=== PATIENT | male | born 1960 | race Caucasian/White ===

== ENCOUNTER 2019-12-16 12:51 | Outpatient (CLI) | payer OTHER, SELFPAY ==
[2019-12-16 16:50] LABS: Anion Gap 9.1 mmol/L (3-11); BUN 23 mg/dL (7-18); CO2 26.9 mmol/L (21.0-32.0); Chloride 105 mmol/L (98-107); Estimated GFR 44.46 (mL/min/1.73m2); Glucose 97 mg/dL (74-106); Potassium 5.4 mmol/L (3.5-5.1); Sodium 141 mmol/L (136-145)
== END 2019-12-16 13:11 ==
PROVIDERS: PCP Family Medicine; Visit Provider Family Medicine
DX: I10 Essential (primary) hypertension (principal)
CPT/HCPCS: 36415; 80048

== ENCOUNTER 2019-12-19 07:29 | Outpatient (CLI) | payer OTHER, SELFPAY ==
--- NOTE | 2019-12-19 10:17 | DI.US_ITS ---
EXAM: US RENAL CLINICAL HISTORY: RENAL INSUFFICIENCY, MILD, N28.9 TECHNIQUE: Ultrasound performed using standard protocol. COMPARISON: No exams were available for comparison FINDINGS: Scanning of the urinary tract was performed according to the usual protocol. Incidental note is made of cholelithiasis with multiple gallstones. There is no evidence of a renal mass, hydronephrosis, or nephrolithiasis. Two small right renal simp le cysts are noted, the largest measuring about 16 millimeters in diameter. Urinary bladder is unrem arkable in appearance. Pre and postvoid urinary bladder volume measurements are 158 cc's and 29 cc's respectively. Ureteral jets were not visualized. IMPRESSION: No significant renal abnormality seen. No evidence of urinary tract obstruction.
== END 2019-12-19 07:49 ==
PROVIDERS: PCP Nurse Practitioner Family; Visit Provider Family Medicine
DX: N28.9 Disorder of kidney and ureter, unspecified (principal); K80.20 Calculus of gallbladder without cholecystitis without obstruction; N28.1 Cyst of kidney, acquired
CPT/HCPCS: 76770

== ENCOUNTER 2021-05-09 17:45 | Outpatient (REF) | payer BC, SELFPAY ==
[2021-05-09 18:08] LABS: Anion Gap 10.6 mmol/L (3-11); BUN 31 mg/dL (7-18); CO2 23.4 mmol/L (21.0-32.0); CREATININE 1.7 mg/dL (0.70-1.30); Calcium 8.9 mg/dL (8.5-10.1); Calculated LDL 110 mg/dL (<100); Chloride 106 mmol/L (98-107); Cholesterol 156 mg/dL (<200); Estimated GFR 41.18 (mL/min/1.73m2); Glucose 162 mg/dL (74-106); HDL Cholesterol 29 mg/dL (40-60); Potassium 4.7 mmol/L (3.5-5.1); Sodium 140 mmol/L (136-145); Triglyceride 88 mg/dL (<150)
== END 2021-05-09 17:46 | disposition home or self-care (01) ==
LOC: LBN 17:45
PROVIDERS: PCP Nurse Practitioner Family; Visit Provider Nurse Practitioner Family
DX: E78.5 Hyperlipidemia, unspecified (principal); I10 Essential (primary) hypertension
CPT/HCPCS: 80048; 80061; 83036

== ENCOUNTER 2021-06-13 11:02 | Day surgery (SDC) | payer BC, SELFPAY ==
--- NOTE | 2021-06-13 06:53 | W.COLOREPORT ---
Date of service: 06/13/21 Time of Service: 12:00 Colonoscopy Report Date of procedure: 06/13/21 Pre-op diagnosis general: Colon Cancer Screening Post-op diagnosis procedure note: same Procedure: Colonoscopy Surgeon: Marilee Barr Anesthesia Type: General:No Airway (ASA 2/Ion Combs, ZELALEM) Estimated blood loss (mL): 0 Pathology: none sent Complications: None Disposition: same day Indications: The patient is here for Colonoscopy pre-op. His last screening was in 2009 and was unremarkable. He has no family history of colon cancer. He has not had any bowel habit changes. -Discussed colonoscopy bowel prep as well as the procedure. Discussed possible complications of the procedure to include bleeding, pain, perforation, missed small lesion/polyp, sore throat, aspiration and adverse reaction to the medications. Questions were answered to patient?s satisfaction. No guarantees were implied or given. Prep: Miralax/Dulcolax Procedure Start Time: 12:00 Procedure End Time: 12:46 Retraction Time: 14 minutes Findings: Normal colon Procedure Description: After informed consent was obtained the patient was taken to the procedure room and placed in a left decubitous position. Monitors were applied and a time out was done. The patients name, date of , procedure, allergies to medications and metal in their body was reviewed. The patient was then sedated. Once sedated and comfortable a rectal exam was done. External exam was normal. Internal exam revealed a normal sphincter tone and no palpable masses. I was unable to feel his prostate. The scope was then introduced and retro-flexed. NO internal hemorrhoids, polyps or masses were identified on retro-flexion. The scope was then advanced to the cecum without difficulty. The ileocecal vlave and appendiceal orifice were identified. The prep was good. The scope was then slowly retracted over 14 minutes back into the rectum. There were no polyps. There was no diverticulosis noted. The scope was removed and the patient was woken up and taken back to Same day surgery in stable condition. The patient tolerated the procedure well and there were no immediate complications. Follow up: The patient should follow up in 14 years unless they develop changes in bowel habits or other new gastrointestinal complaints.
--- NOTE | 2021-06-13 06:55 | W.PM.DSUDISC ---
Discharge Plan Disposition Patient Disposition: HOME Condition: Good Discharge Details Reason For Visit: SCREENING Attending Provider: Marilee Barr Primary Care Provider: Mckenzie De Jesus Home Meds and New Rx's Prescriptions: Continued buspirone 30 mg tablet 30 mg PO DAILY Qty: 90 RF: 4 aspirin [Aspir-81] 81 MG tablet,delayed release (DR/EC) 1 tab PO DAILY RF: 0 lisinopril 20 mg tablet 20 mg PO DAILY Qty: 90 RF: 4 venlafaxine 75 mg capsule,extended release 24hr 75 mg PO DAILY Qty: 90 RF: 4 venlafaxine 150 mg capsule,extended release 24hr 150 mg PO DAILY Qty: 90 RF: 4 lorazepam [Ativan] 1 mg tablet 1 mg PO DAILY PRN (Reason: anxiety) Qty: 30 RF: 0 atorvastatin 40 mg tablet 40 mg PO DAILY Qty: 90 RF: 4 Discontinued bisacodyl [Dulcolax (bisacodyl)] 5 mg tablet,delayed release (DR/EC) 5 mg PO ONCE Qty: 4 RF: 0 polyethylene glycol 3350 17 gram/dose powder 238 g PO ONCE Qty: 238 RF: 0 bisacodyl [Dulcolax (bisacodyl)] 5 mg tablet,delayed release (DR/EC) 5 mg PO ONCE Qty: 4 RF: 0 polyethylene glycol 3350 17 gram/dose powder 238 g PO ONCE Qty: 238 RF: 0 Discharge Instructions Additional Instructions: Findings: Normal colonoscopy Follow up: 10 years Please call if you develop: fevers >101.5 Nausea or Vomiting Abdominal pain that is not transient Rectal bleeding that is more then a tbsp A hard abdomen and inability to pass gas DAY SURGERY UNIT POST ENDOSCOPY INSTRUCTIONS Instructions for everyone who is given Anesthesia: For your safety, please do the following for the next 24 Hours: a. Do not drive or operate dangerous equipment b. Do not drink alcohol beverages or use any recreational drugs for the first 24 hours or while taking pain medications. The medications in your body may have a reaction that can be dangerous. c. Do not make any important decisions or sign any important papers 1. Generally there are no restrictions on your activity after a day or so has gone by, but you may feel a bit fatigued for a few days. 2. After you arrive home you may have a light meal and return to a normal diet as you can tolerate it without feeling sick to your stomach. 3. After surgery, you may feel pain or discomfort. This should be only transient, but if it persists please contact your doctor. 4. If there are any questions regarding the findings of your procedure, please feel free to contact your doctor. 6. If you are unable to contact your doctor with a problem, contact the hospital at [phone]. 7. Continue all your regular medications unless directed otherwise. I understand the above instructions and have no questions. Signature of Patient or Responsible Adult Escort Date/Time Name of Responsible Adult Escort Signature of Nurse Date/Time Activity:: Activity as Tolerated Diet:: As Tolerated Discharge Orders Discharge Orders: Discharge Order (Routine); Ordered 06/13/21 Ordered By: Marilee Barr
[2021-06-13 11:20] VITALS: BP 148/96; PULSE 90; RESP 18; TEMP 36.2; O2SAT 94
--- NOTE | 2021-06-13 11:21 | W.ANESPRE ---
General Info Date of Service Date Performed: 06/13/21 Height: 5 ft 10 in Weight: 113.398 kg Body Mass Index (BMI): 35.9 Surgical Procedure: Operation Date: 06/13/21 11:20 Proposed Procedures Side Surgeon p Colonoscopy Marilee Barr MD Meds Allergies and Home Medications Allergies Allergy/AdvReac Type Severity Reaction Status Date / Time fluoxetine HCl [From Prozac] Allergy Mild Hives Unverified 06/10/21 07:58 Home Medication Medication Instructions Recorded aspirin [Aspir 81] 1 tab PO DAILY 03/09/13 lisinopril 20 mg tablet 20 mg PO DAILY #90 tab-cap 08/30/20 venlafaxine 150 mg 150 mg PO DAILY #90 tab-cap 12/23/20 capsule,extended release 24 hr venlafaxine 75 mg capsule,extended 75 mg PO DAILY #90 cap 12/23/20 release 24 hr buspirone 30 mg tablet 30 mg PO DAILY #90 tab 04/04/21 atorvastatin 40 mg tablet 40 mg PO DAILY #90 tab-cap 06/09/21 lorazepam 1 mg tablet 1 mg PO DAILY PRN #30 tab-cap 06/09/21 bisacodyl 5 mg tablet,delayed 5 mg PO ONCE #4 tab 06/10/21 release bisacodyl 5 mg tablet,delayed 5 mg PO ONCE #4 tab 06/10/21 release polyethylene glycol 3350 17 238 g PO ONCE #238 g 06/10/21 gram/dose oral powder polyethylene glycol 3350 17 238 g PO ONCE #238 g 06/10/21 gram/dose oral powder Current Visit Medications: Current Medications Generic Name Dose Route Start Last Admin Trade Name Freq PRN Reason Stop Dose Admin Hyoscyamine Sulfate 0.125 mg 06/13/21 06:56 Hyoscyamine 0.125 Mg Sl/Oral/Chew SL DIRECTED PRN Ringer's Solution 1,000 mls @ 80 mls/hr 06/13/21 06:00 IV 07/10/21 23:59 INFUSION REPLACED BY [facility] IV Miscellaneous Supplies 1 each 06/13/21 06:00 Iv Access IV 07/10/21 23:59 DIRECTED PEPE Ondansetron HCl 4 mg 06/13/21 06:56 Ondansetron 4 Mg/2 Ml Vial IVP Q4H PRN PRN Nausea / Vomiting Sodium Chloride 0 ml 06/13/21 06:00 Normal Saline Flush 10 Ml Syr IV 07/10/21 23:59 PRN PRN Sodium Chloride 0 ml 06/13/21 06:00 Normal Saline 10 Ml Vial IJ 07/10/21 23:59 DIRECTED PRN Sterile Water 0 ml 06/13/21 06:00 Water,Injection,Sterile 10 Ml Vial IJ 07/10/21 23:59 DIRECTED PRN PFSH Active Problems Active Problems: Problem Status Onset Code Essential hypertension I10 Chronic kidney disease N18.9 Hyperlipidemia E78.5 Prediabetes R73.03 Major depressive disorder F32.9 Generalized anxiety disorder F41.1 Social anxiety disorder F40.10 Globus sensation R09.89 Medical History Medical History Chronic kidney disease Generalized anxiety disorder Globus sensation History of tobacco use Hyperlipidemia Major depressive disorder Prediabetes Social anxiety disorder Surgical History Surgical History S/P appendectomy S/P colonoscopy (06/01/10) S/P splenectomy Tobacco Smoking/Tobacco Use Status: Former Tobacco Use (about 25 years quit in 2003) Smokeless tobacco user: chewing tobacco Passive smoking exposure: Yes Second hand exposure: Yes Alcohol Alcohol Intake: former Substance Use Substance use: Current Sobriety Substance use type: former substance user, marijuana, crack/cocaine, heroin and hallucinogens Vital Signs and Lab Results Lab Results Blood Type / Crossmatch: No Data to Display Complete Blood Count: No Data to Display Complete Metabolic Panel: No Data to Display Liver Function Panel: No Data to Display Coagulation Panel: No Data to Display Cardiac Panel: No Data to Display Arterial Blood Gas: No Data to Display Venous Blood Gas: No Data to Display Pancreas Panel: No Data to Display Thyroid Panel: No Data to Display Infectious Disease: No Data to Display Blood Cultures: No Data to Display Toxicology Panel: No Data to Display Anesthesia Assessment and Plan Anesthesia History Personal History: No History of Anesthesia Complications Family History: No Family History of Anesthesia Complications Exercise Tolerance Exercise Tolerance: Metabolic Equivalents>4 Pertinent Negatives Pertinent Negatives: No Symptoms of GERD, No Major Cardiovascular Symptoms or Complaints, No Major Pulmonary Symptoms or Complaints and No History of CVA/TIA Cardiac & Pulmonary Exam Cardiac Exam: Normal S1/S2 Heart Sounds Pulmonary Exam: Clear Bilateral Breath Sounds Airway Exam Known Difficult Airway: No Mallampati Class: 2 Mouth Opening: Normal (> 3cm) Thyromental Distance: Greater than 3 cm Neck Range of Motion: Full ROM Neck Circumference: Normal Teeth Condition: Loose or Chipped, Dental Caries and Advised tooth loss possible given current condition (indicate tooth) Airway Comments: very poor dentition, multiple loose teeth, upper and lower. ASA Classification ASA Score: ASA 2 Emergency Case?: No NPO Status NPO Status: NPO Clears >2 hours, Solids >8 hours Anesthesia Plan Resuscitation Status: Full Code Anesthesia Technique: MAC Anesthesia Airway Planned: Natural Airway Monitors Used: Standard Monitors
[2021-06-13 11:25] VITALS: BMI 35.9
[2021-06-13] MEDS: Lactated Ringers 1,000 ML 80 ML IV (11:33)
[2021-06-13 12:37] VITALS: BP 132/74; PULSE 70; RESP 16; TEMP 36.1; O2SAT 93
--- NOTE | 2021-06-13 12:38 | W.ANESPOSTOP ---
Postoperative Evaluation Date, Time and Location Date Performed: 06/13/21 Time Performed: 12:38 Patient Location: Day Surgery Unit Vital Signs Most Recent Imported Vital Signs: Most Recent Vital Signs Temp Pulse Resp BP Pulse Ox 36.2 C L 90 18 148/96 H 94 06/13/21 11:20 06/13/21 11:20 06/13/21 11:20 06/13/21 11:20 06/13/21 11:20 Most Recent Manually Entered Vital Signs: Adult Blood Pressure: 132/74 Heart Rate: 70 Respirations: 12 Oxygen Saturation (%): 94 Temperature (C): 36.5 C Pain Score (0-10 Scale): 0 Pain Score Most Recent Pain Score: Most Recent Pain Score Pain Level 4 06/13/21 11:20 Assessment Mental Status: Awake (Alert & Oriented to Patient Baseline) Airway and Respiratory Function: Patent airway with normal (patient baseline) respiratory exam Cardiovascular Function: Hemodynamically Stable Hydration Status: Adequately Hydrated Nausea & Vomiting: No Nausea or Vomiting Pain: Pt. Denies Any Pain Peripheral Nerve Block: Patient did not receive a nerve block
[2021-06-13 12:39] VITALS: BP 132/74; PULSE 70; RESP 12; TEMPC 36.5; O2SAT 94
[2021-06-13 13:06] VITALS: BP 147/88; PULSE 63; RESP 17; TEMP 36.2; O2SAT 95
== END 2021-06-13 13:30 | disposition home or self-care (01) ==
LOC: SUR 11:03
PROVIDERS: PCP Nurse Practitioner Family; Visit Provider Surgery
PROC: 0DJD8ZZ Inspection of Lower Intestinal Tract, Via Natural or Artificial Opening Endoscopic (ICD-10-PCS; CPT 45378; principal; 2021-06-13 11:15)
DX: Z12.11 Encounter for screening for malignant neoplasm of colon (principal); R73.03 Prediabetes; N18.9 Chronic kidney disease, unspecified
CPT/HCPCS: 45378; J2001; J2704

== ENCOUNTER 2021-11-16 19:06 | Emergency (ER) | payer BC, SELFPAY ==
[2021-11-16 19:21] VITALS: BP 147/92; PULSE 102; RESP 18; TEMP 36.5; O2SAT 96
[2021-11-16 20:21] LABS: Abs Immature Grans 0.01 10^3/uL (0.0-0.06); Absolute Basophil Count 0.03 10^3/uL (0.0-0.2); Absolute Eosinophil Count 0.02 10^3/uL (0.0-0.7); Absolute Lymphocyte Count 2.02 10^3/uL (1.2-3.4); Absolute Monocyte Count 0.62 10^3/uL (0.1-0.8); Absolute Neutrophil Count 3.81 10^3/uL (1.2-6.7); Basophils % 0.5; Eosinophils % 0.3; HCT 44.5 % (40.0-50.0); HGB 14.6 g/dL (13.5-17.5); Immature Grans % 0.2; MCH 32.5 pg (27.0-33.0); MCHC 32.8 % (32.0-36.0); MCV 99.1 fL (80-95); MPV 9.6 fL (8.0-11.0); Monocytes % 9.5; Neutrophils % 58.5; Nucleated RBC 0 %; Platelet Count 435 10^3/uL (130-400); RBC 4.49 10^6/uL (4.36-5.78); RDW 14.1 % (11.8-14.1); RDW-SD 51.5 fL; WBC 6.51 10^3/uL (4.4-10.8)
[2021-11-16 20:34] LABS: ALT 34 U/L (16-63); AST 20 U/L (15-37); Albumin 3.4 g/dL (3.4-5.0); Alkaline Phosphatase 57 U/L (46-116); BUN 34 mg/dL (7-18); Bilirubin, Total 0.2 mg/dL (0.2-1.0); CREATININE 2.2 mg/dL (0.70-1.30); Calcium 8.8 mg/dL (8.5-10.1); Chloride 102 mmol/L (98-107); Estimated GFR 30.58 (mL/min/1.73m2); Glucose 106 mg/dL (74-106); Lipase 212 U/L (73-393); Potassium 4.4 mmol/L (3.5-5.1); Sodium 135 mmol/L (136-145); Total Protein 7.8 g/dL (6.4-8.2)
--- NOTE | 2021-11-16 21:36 | W.ED.GENAD ---
Discharge Plan Disposition Patient Disposition: HOME Condition: Stable Discharge Details Clinical Impression: Viral illness, Chronic kidney disease Primary Care Provider: Mckenzie De Jesus ED Provider: Radu Munoz Home Meds and New Rx's Prescriptions: Continued buspirone 30 mg tablet 30 mg PO DAILY Qty: 90 RF: 4 aspirin [Aspir-81] 81 MG tablet,delayed release (DR/EC) 1 tab PO DAILY RF: 0 venlafaxine 75 mg capsule,extended release 24hr 75 mg PO DAILY Qty: 90 RF: 4 venlafaxine 150 mg capsule,extended release 24hr 150 mg PO DAILY Qty: 90 RF: 4 atorvastatin 40 mg tablet 40 mg PO DAILY Qty: 90 RF: 4 lisinopril 20 mg tablet 20 mg PO DAILY Qty: 90 RF: 4 lorazepam [Ativan] 1 mg tablet 1 mg PO DAILY PRN (Reason: anxiety) Qty: 28 RF: 0 Discharge Instructions Instructions: Viral Syndrome (ED) Additional Instructions: Due to your chronic renal failure and your decreased kidney function it is very important that you stay well-hydrated as this may be contributing to your symptoms. At this time you are pending a send out Covid test which results are typically available in 24 to 48 hours and someone will contact you with your result. Until then you should stay at home quarantine given that you have a viral type symptoms. If you have any significant worsening of your symptoms or new complaint feel free to return to the emergency department for reassessment. Stand Alone Forms: Work Release Discharge Data Discharge Date/Time-TO BE ENTERED AT DEPARTURE: 11/16/21 22:04 Medical Decision Making Patient presenting to the emergency department with chief complaint of back pain and vague viral symptoms. Physical exam is unremarkable for any acute findings. Plan to check labs and perform send out Covid test. Review of labs show no worrisome finding for patient's complaint except for decreased renal function which is slightly worse than patient's baseline. Ordered IV hydration but patient refused at this time. Given that patient is otherwise stable in appearance and able to tolerate p.o. intake patient was encouraged to use acetaminophen for discomfort and to hydrate. Patient given work note excusing him from work pending Covid testing. Patient denies any known exposure. After discussion of diagnosis and plan of care patient has no further needs, questions, or concerns and states clear understanding to return to the emergency department for any worsening symptoms. Lab Data Labs: Laboratory Tests Range/Units 11/16/21 11/16/21 11/16/21 20:01 20:01 20:01 WBC (4.4-10.8) 10^3/uL 6.51 RBC (4.36-5.78) 10^6/uL 4.49 Hgb (13.5-17.5) g/dL 14.6 Hct (40.0-50.0) % 44.5 MCV (80-95) fL 99.1 H MCH (27.0-33.0) pg 32.5 MCHC (32.0-36.0) % 32.8 RDW (11.8-14.1) % 14.1 Plt Count (130-400) 10^3/uL 435 H MPV (8.0-11.0) fL 9.6 Immature Gran % 0.2 Neutrophils % 58.5 Lymphocytes % 31.0 Monocytes % 9.5 Eosinophils % 0.3 Basophils % 0.5 Nucleated RBC % % 0 Absolute Neutrophils (1.2-6.7) 10^3/uL 3.81 Absolute Lymphocytes (1.2-3.4) 10^3/uL 2.02 Absolute Monocytes (0.1-0.8) 10^3/uL 0.62 Absolute Eosinophils (0.0-0.7) 10^3/uL 0.02 Absolute Basophils (0.0-0.2) 10^3/uL 0.03 Sodium (136-145) mmol/L 135 L Potassium (3.5-5.1) mmol/L 4.4 Chloride (98-107) mmol/L 102 Carbon Dioxide (21.0-32.0) mmol/L 23.0 Anion Gap (3-11) mmol/L 10.0 BUN (7-18) mg/dL 34 H Creatinine (0.70-1.30) mg/dL 2.2 H Estimated GFR/1.73 m2 (mL/min/1.73m2) 30.58 Glucose (74-106) mg/dL 106 Calcium (8.5-10.1) mg/dL 8.8 Total Bilirubin (0.2-1.0) mg/dL 0.2 AST (15-37) U/L 20 ALT (16-63) U/L 34 Alkaline Phosphatase (46-116) U/L 57 Total Protein (6.4-8.2) g/dL 7.8 Albumin (3.4-5.0) g/dL 3.4 Lipase (73-393) U/L 212 SARS-CoV-2 (PCR) (Negative) Positive A* Eduardoaryn COVID-19 PCR Not Applicable Ref Test Perform Site [facility] [address] [facility] Lab HPI General Mode of arrival: ambulatory. Date/Time Provider Initiated Documentation: 11/16/21 19:25. Limitations to Documentation: no limitations. Information obtained by: patient. History of Present Illness 61 year old M presents to the emergency department with the chief complaint of Backache, nasal congestion, general feelings of illness, described as moderate, with intensity rated at 6. Quality is described as aching, and is localized to the back. Patient extremity. Patient started experiencing this day(s) (2) and it has been constant. No relieving factors improve symptom(s), Movement worsens symptoms . Patient notes headaches and malaise; denies chest pain and shortness of breath. Patient did receive the following treatments prior to arrival, none Related Data Home Medications Medication Instructions Recorded Confirmed aspirin [Aspir-81] 1 tab PO DAILY 03/09/13 11/16/21 venlafaxine 150 mg 150 mg PO DAILY #90 tab-cap 12/23/20 11/16/21 capsule,extended release 24 hr venlafaxine 75 mg capsule,extended 75 mg PO DAILY #90 cap 12/23/20 11/16/21 release 24 hr buspirone 30 mg tablet 30 mg PO DAILY #90 tab 04/04/21 11/16/21 atorvastatin 40 mg tablet 40 mg PO DAILY #90 tab-cap 06/09/21 11/16/21 lisinopril 20 mg tablet 20 mg PO DAILY #90 tab-cap 07/14/21 11/16/21 lorazepam 1 mg tablet 1 mg PO DAILY PRN #28 tab-cap 10/26/21 11/16/21 Previous Rx's Medication Instructions Recorded venlafaxine 150 mg 150 mg PO DAILY #90 tab-cap 12/23/20 capsule,extended release 24 hr venlafaxine 75 mg capsule,extended 75 mg PO DAILY #90 cap 12/23/20 release 24 hr buspirone 30 mg tablet 30 mg PO DAILY #90 tab 04/04/21 atorvastatin 40 mg tablet 40 mg PO DAILY #90 tab-cap 06/09/21 lisinopril 20 mg tablet 20 mg PO DAILY #90 tab-cap 07/14/21 lorazepam 1 mg tablet 1 mg PO DAILY PRN #28 tab-cap 10/26/21 Allergies Allergy/AdvReac Type Severity Reaction Status Date / Time fluoxetine HCl [From Prozac] Allergy Mild Hives Unverified 11/16/21 19:25 General Stated Complaint: Nk/Back Pain DIANNE: 3 Review of Systems Constitutional Constitutional: Reports body ache(s), Reports chills, Reports headache(s) and Reports malaise Eyes Eyes: Denies change in vision, Denies eye discharge, Denies eye pain and Reports other (due to headache) ENT Ears, Nose, Mouth, and Throat: Reports as per HPI, Denies ear discharge, Denies otalgia, Reports headache(s), Reports nasal congestion, Reports nasal discharge, Denies neck pain, Reports sore throat and Denies throat swelling Cardiovascular Cardiovascular: Denies chest pain and Denies dyspnea Respiratory Respiratory: Reports cough and Denies dyspnea Gastrointestinal Gastrointestinal: Denies abdominal pain, Reports loose stools, Reports nausea and Denies vomiting Musculoskeletal Musculoskeletal: Reports back pain, Denies joint swelling, Denies neck pain and Reports other (General myalgias) Integumentary/Breasts Skin/Breast: Denies rash Neurologic Neurologic: Reports headache(s) Allergic/Immunologic Allergic/Immunologic: Denies throat swelling PFSH All Active Problems (Updated 11/16/21 @ 21:37 by Radu Munoz NP) Viral illness (Acute) Essential hypertension (Chronic) Chronic kidney disease (Chronic) Hyperlipidemia (Chronic) Prediabetes (Chronic) Major depressive disorder (Chronic) Generalized anxiety disorder (Chronic) Social anxiety disorder (Chronic) Globus sensation (Chronic) Active Problem List Essential hypertension (Chronic) Chronic kidney disease (Chronic) Hyperlipidemia (Chronic) Prediabetes (Chronic) Major depressive disorder (Chronic) Generalized anxiety disorder (Chronic) Social anxiety disorder (Chronic) Globus sensation (Chronic) Medical History History of tobacco use Surgical History S/P appendectomy S/P colonoscopy (06/13/21) S/P splenectomy Family History Mother , age 80 Essential hypertension Depression Myeloma diagnosed 2012 Father Heart disease Pacemaker Asthma Brother Diabetes Depression Type 1 diabetes mellitus Brother Alcohol abuse Sister No problems noted. Sister No problems noted. Paternal Grandfather No problems noted. Paternal Grandmother Cancer Stroke Maternal Grandfather No problems noted. Maternal Grandmother Ovarian cancer Hyperlipidemia Social History Smoking/Tobacco Use Status: Former Tobacco Use Quit Date: 11/19/03 Smokeless tobacco user: chewing tobacco Second Hand Exposure: Yes Smoking risk assessment performed?: Yes Alcohol Intake: former Drug use: Current Sobriety Substance use type: former substance user, marijuana, crack/cocaine, heroin and hallucinogens Caregiver/Support person: Yes Housing: house Communication Needs: None Do you need help understanding health information?: Never Pets and animals: Yes Pets and animals: dog(s) Sexually active: No Do you think of yourself as: straight/heterosexual Current gender identity: male What is your relationship status?: How often do you talk on the phone with friends or family?: once per week How often do you get together with friends or relatives?: once per week How often do you attend sabianism or restorationist services?: 1-3 times per year Do you belong to any clubs or organized social groups?: yes Panel score (0-1 are the most socially isolated patients): 1 What type of physical activity do you participate in: none Frequency: does not exercise Pauline/Advent: None Special pauline needs: No Seatbelt use: always Helmet use: Yes Helmet use: always Drive intox or ride w/intox chassis driver: No Do you feel safe at home: Yes Do you feel safe in your relationship?: Yes Exam Const General: cooperative, comfortable and no acute distress Orientation: alert and awake [facility] Head: normal to inspection, normocephalic and atraumatic Ears: hearing grossly normal bilaterally and TM's normal bilaterally General nose exam: external nose normal Face and sinus: no erythema and sinus tenderness ethmoid and maxillary Mouth: oral mucosae normal, no drooling, no muffled voice and no trismus Throat: posterior oropharynx normal Eyes General: appearance normal, both eyes and all related structures Alignment and Position: alignment normal Periorbital: periorbital findings normal Eyelids: eyelids normal Conjunctivae: conjunctivae normal Sclera: sclerae normal Pupils: PERRL EOM: EOM intact bilaterally Neck Neck: normal visual inspection, full ROM, no lymphadenopathy, no meningeal signs, trachea midline and supple Resp Effort & Inspection: normal respiratory effort, able to speak in complete sentences and no cough Auscultation: clear to auscultation bilaterally Cardio Rate: regular rate Rhythm: regular rhythm Heart Sounds: S1 normal, S2 normal, normal S1 and S2, no click, no gallops, no murmurs and no rubs GI Inspection: obesity Palpation: soft and nontender Auscultation: normal bowel sounds Back/Spine/Pelvis Back: no CVA tenderness Cervical Spine: normal cervical lordosis Thoracic/Lumbar Spine: thoracic and lumbar spine normal to inspection, No paraspinal tenderness, No thoracic spinal tenderness and No lumbar spinal tenderness Skin General skin exam: no rashes or lesions noted and dry skin (warm) Neuro General: patient alert, patient awake, patient oriented x3, gait normal and moves all extremities Cognition: normal cognition Speech: speech normal Course Vital Signs Vital signs: Vital Signs Temperature 36.5 C 11/16/21 19:21 Pulse 102 H 11/16/21 19:21 Respiratory Rate 18 11/16/21 19:21 Blood Pressure 147/92 H 11/16/21 19:21 Pulse Oximetry 96 11/16/21 19:21 Temperature 36.5 C 11/16/21 19:21 Temperature Source Temporal Artery Scan 11/16/21 19:21 Pulse 102 H 11/16/21 19:21 Respiratory Rate 18 11/16/21 19:21 Respiratory Effort Non-Labored 11/16/21 19:27 Blood Pressure 147/92 H 11/16/21 19:21 Blood Pressure Position Sitting 11/16/21 19:21 Pulse Oximetry 96 11/16/21 19:21 Oxygen Delivery Method Room Air 11/16/21 19:21 Oxygen Flow Rate 0 11/16/21 19:21 Lab/Test Results Lab/Test Results: Laboratory Tests Range/Units 11/16/21 11/16/21 20:01 20:01 WBC (4.4-10.8) 10^3/uL 6.51 RBC (4.36-5.78) 10^6/uL 4.49 Hgb (13.5-17.5) g/dL 14.6 Hct (40.0-50.0) % 44.5 MCV (80-95) fL 99.1 H MCH (27.0-33.0) pg 32.5 MCHC (32.0-36.0) % 32.8 RDW (11.8-14.1) % 14.1 Plt Count (130-400) 10^3/uL 435 H MPV (8.0-11.0) fL 9.6 Immature Gran % 0.2 Neutrophils % 58.5 Lymphocytes % 31.0 Monocytes % 9.5 Eosinophils % 0.3 Basophils % 0.5 Nucleated RBC % % 0 Absolute Neutrophils (1.2-6.7) 10^3/uL 3.81 Absolute Lymphocytes (1.2-3.4) 10^3/uL 2.02 Absolute Monocytes (0.1-0.8) 10^3/uL 0.62 Absolute Eosinophils (0.0-0.7) 10^3/uL 0.02 Absolute Basophils (0.0-0.2) 10^3/uL 0.03 Sodium (136-145) mmol/L 135 L Potassium (3.5-5.1) mmol/L 4.4 Chloride (98-107) mmol/L 102 Carbon Dioxide (21.0-32.0) mmol/L 23.0 Anion Gap (3-11) mmol/L 10.0 BUN (7-18) mg/dL 34 H Creatinine (0.70-1.30) mg/dL 2.2 H Estimated GFR/1.73 m2 (mL/min/1.73m2) 30.58 Glucose (74-106) mg/dL 106 Calcium (8.5-10.1) mg/dL 8.8 Total Bilirubin (0.2-1.0) mg/dL 0.2 AST (15-37) U/L 20 ALT (16-63) U/L 34 Alkaline Phosphatase (46-116) U/L 57 Total Protein (6.4-8.2) g/dL 7.8 Albumin (3.4-5.0) g/dL 3.4 Lipase (73-393) U/L 212
[2021-11-16 22:12] VITALS: BP 120/73; PULSE 98; RESP 16; TEMP 36.6; O2SAT 95
[2021-11-18 11:59] LABS: COVID-19 RT-PCR UVMMC Result Positive (Negative)
--- NOTE | 2021-11-18 13:08 | W.ED.FU ---
Follow Up Plan: I was notified by the lab that Saleem Solorzano's Covid test resulted as positive. I contacted Mr. Solorzano to discuss his positive result with him over the phone. He reports that he is generally feeling well although he is having some continued symptoms ongoing from when he was seen here 11/16/2021. I had a discussion with Patient regarding return to emergency department precautions, home care, isolation to prevent transmission, and importance of outpatient follow-up. Pt verbalizes understanding of the plan and is amenable. All questions were answered.
== END 2021-11-16 22:04 | disposition home or self-care (01) ==
PROVIDERS: Emergency Provider Nurse Practitioner Family; PCP Nurse Practitioner Family
DX: U07.1 COVID-19 (principal); M54.50 Low back pain, unspecified; I12.9 Hypertensive chronic kidney disease with stage 1 through stage 4 chronic kidney disease, or unspecified chronic kidney disease; N18.9 Chronic kidney disease, unspecified; Z20.822 Contact with and (suspected) exposure to COVID-19
CPT/HCPCS: 36415; 80053; 83690; 99283; U0003; 85025

== ENCOUNTER 2022-05-19 02:50 | Outpatient (CLI) | payer BC, SELFPAY ==
--- OUTSIDE RECORDS SUMMARY | 2022-05-19 02:52 | XMS_ITS | Clinical Summary ---
:1960 Author Organization [facility] [address] Care Team Providers Name Role Phone Sb CRISTOBAL MD, Isaiah Hardin Primary Care Provider Allergies No known active allergies Medications Medication Sig Dispensed Refills Start Date End Date Status propranolol (INDERAL 80mg, PO, Once 0 06/15/2006 Active LA) 80 mg 24 hr capsule daily citalopram (CELEXA) 20 20MG = 1 0 06/15/2006 Active mg tablet Tablet(s), PO, Once daily Immunizations Name Administration Dates Next Due Td, adult 12/21/2003 Social History Tobacco Use Types Packs/Day Years Used Date Never Assessed Sex Assigned at Date Recorded Not on file Plan of Treatment Health Maintenance Due Date Last Done Comments Covid-19 Vaccine (#1) 1965 HIV screen 1978 Hepatitis C Screening 1978 Lipid Screening 1978 Tdap adult 1979 Colonoscopy 2005 Zoster vaccine (1 of 2) 2010 Tetanus vaccine 12/21/2013 12/21/2003 Advance Directive 2015 Influenza (Flu) vaccine (1 of 1 - Influenza standard 07/20/2021 series) Insurance Payer Benefit Plan / Subscriber ID Effective Dates Phone Addre ss Type Group CIGNA CIGNA POS OPEN [id number] 2014-Present [phone] [address] [place] [id number] Care Teams Bag Machine Tender Relationship Specialty Start Date End Date Isaiah Basurto III, MD PCP - General 10/11/10 [address] [place], [place] [address]
--- OUTSIDE RECORDS SUMMARY | 2022-05-19 02:52 | XMS_ITS | Encounter Summary ---
:1960 Author Organization [facility] [place] [address] Care Team Providers Name Role Phone Sb CRISTOBAL MD, Lloyd L Primary Care Provider [phone] Encounter Details Date Type Department Care Team Description 12/19/2019 Ancillary Procedure Radiology Library at [facility] [address] [address] [id number] [phone] Social History Tobacco Use Types Packs/Day Years Used Date Never Assessed Sex Assigned at Date Recorded Not on file documented as of this encounter Plan of Treatment Not on filedocumented as of this encounter Procedures Procedure Name Priority Date/Time Associated Comments Diagnosis FILM LIBRARY STORAGE Routine 12/19/2019 12:00 AM Results for this ONLY ULTRASOUND EST procedure ar e in STUDY the results section. documented in this encounter Results Film Library- Storage Only Ultrasound Study (12/19/2019 12:00 AM EST) Specimen (Source) Anatomical Location Collection Method / Collectio n Time Received Time / Laterality Volume Narrative RAD - 12/22/2019 9:52 AM EST This exam is auto-finalizing. It's purpo se is for storage only. [facility] WALL MIRROR DEPARTMENT SUPERVISOR IM FILM LIBRARY ORDERABLES Performing Organization Address City/State/ZIP Code Phon e Number [place], [place] documented in this encounter Visit Diagnoses Not on filedocumented in this encounter Care Teams Staffing Administrator Relationship Specialty Start Date End Date Isaiah Basurto III, MD PCP - General 10/11/10 [address] [place] [address] documented as of this encounter
--- OUTSIDE RECORDS SUMMARY | 2022-05-19 02:52 | XMS_ITS | Encounter Summary ---
:1960 Author Organization [facility] Address [address] [place] [address] Care Team Providers Name Role Phone Unavailable Primary Care Provider Unavailable Encounter Details Date Type Department Care Team Description 11/17/2021 Lab Requisition [facility] Outr Resulting Lab, Pathology & Laboratory Provider [facility] [address] [place] [address] Social History Tobacco Use Types Packs/Day Years Used Date Never Assessed Sex Assigned at Date Recorded Not on file documented as of this encounter Plan of Treatment Not on filedocumented as of this encounter Procedures Procedure Name Priority Date/Time Associated Diagnosis Comme nts COVID-19 TEST [facility] Today 11/16/2021 20:01 LAB PCR EST COVID-19 TESTING Routine 11/16/2021 20:01 Results for this EST procedure are i n the results section. documented in this encounter Results COVID-19 TEST [facility] LAB PCR (11/16/2021 20:01 EST) Specimen Swab Performing Organization Address City/State/ZIP Code Phon e Number [facility] [address] [place] [address] SERVICES (ABNORMAL) COVID-19 TESTING (11/16/2021 20:01 EST) COVID-19 rt-PCR Positive (AA) Negative [facility] Result Comment: LABORATORY This test has not been FDA c leared or approved. This test has been authorized by FDA under an EUA for use by authorized laboratories. This test has been authorized only for detection of nucleic acid fro SERVICES m 2019-nCoV, not for any oth er viruses or pathogens. This test is only authorized for the duration of the declaration that circumstances exist justifying the authorization of emergency use of in vitro d iagnostic tests for detectio n and/or diagnosis of 2019-nCoV under section 564(b)(1) of Act, 21 U.S.C ?? 360bbb-3(b) (1), unless the authorization is terminated or revoked sooner. Testing was performed using the madelyn SARS-CoV-2 assay ([employer] on the [facility] [address] System Performing Lab [facility] [address] [facility] Lab [facility] SERVICES Specimen Swab Performing Organization Address City/State/ZIP Code Phon e Number [facility] [address] [place] [address] SERVICES documented in this encounter Visit Diagnoses Not on filedocumented in this encounter Additional Health Concerns Infection Onset Date Last Indicated Resolved Time COVID-19 11/16/2021 11/16/2021 12/06/2021 22:15 EST documented as of this encounter
== END 2022-05-19 02:51 | disposition home or self-care (01) ==
LOC: LBO 02:50
PROVIDERS: PCP Nurse Practitioner Family; Visit Provider Nurse Practitioner Family

== ENCOUNTER 2022-05-30 03:01 | Outpatient (CLI) | payer BC, SELFPAY ==
[2022-05-30 14:27] LABS: Hemoglobin A1C 6.3 % (<5.7)
[2022-05-30 16:17] LABS: Anion Gap 7.4 mmol/L (3-11); BUN 26 mg/dL (7-18); CO2 23.6 mmol/L (21.0-32.0); CREATININE 1.5 mg/dL (0.70-1.30); Calcium 9.2 mg/dL (8.5-10.1); Chloride 108 mmol/L (98-107); Estimated GFR 47.42 (mL/min/1.73m2); Glucose 121 mg/dL (74-106); Potassium 4.6 mmol/L (3.5-5.1); Sodium 139 mmol/L (136-145)
[2022-05-30 16:26] LABS: COMMENT (LAB VIEW ONLY) 118.74 mg/dL
[2022-05-30 16:30] LABS: Microalb ug/mg Crea 220.1 ug/mg Cr
[2022-05-31 18:33] LABS: PSA, Screening 0.1 ng/mL (<=4.5)
== END 2022-05-30 03:02 | disposition home or self-care (01) ==
PROVIDERS: PCP Nurse Practitioner Family; Visit Provider Nurse Practitioner Family
DX: R73.03 Prediabetes (principal); N18.9 Chronic kidney disease, unspecified; Z12.5 Encounter for screening for malignant neoplasm of prostate
CPT/HCPCS: 36415; 80048; 84153; 82043; 82570; 83036

== ENCOUNTER 2023-06-01 02:12 | Outpatient (CLI) | payer BC, SELFPAY ==
[2023-06-01 17:42] LABS: Anion Gap 8.4 mmol/L (3-11); BUN 36 mg/dL (7-18); CO2 23.6 mmol/L (21.0-32.0); CREATININE 1.7 mg/dL (0.70-1.30); Calcium 8.6 mg/dL (8.5-10.1); Calculated LDL 121 mg/dL (<100); Chloride 109 mmol/L (98-107); Cholesterol 167 mg/dL (<200); Estimated GFR 44.74 (mL/min/1.73m2); Glucose 93 mg/dL (74-106); HDL Cholesterol 33 mg/dL (40-60); Potassium 4.7 mmol/L (3.5-5.1); Sodium 141 mmol/L (136-145); Triglyceride 69 mg/dL (<150)
== END 2023-06-01 02:13 | disposition home or self-care (01) ==
PROVIDERS: PCP Nurse Practitioner Family; Visit Provider Nurse Practitioner Family
DX: E78.5 Hyperlipidemia, unspecified (principal); I10 Essential (primary) hypertension; R73.03 Prediabetes
CPT/HCPCS: 36415; 80048; 80061; 83036

== ENCOUNTER 2024-08-22 03:12 | Outpatient (CLI) | payer BC, SELFPAY ==
[2024-08-22 15:04] LABS: HCT 44.6 % (40.0-50.0); HGB 15.2 g/dL (13.5-17.5); MCH 33.6 pg (27.0-33.0); MCHC 34.1 % (32.0-36.0); MCV 99 fL (80-95); MPV 10.3 fL (8.0-11.0); Platelet Count 438 10^3/uL (130-400); RBC 4.53 10^6/uL (4.36-5.78); RDW 13.5 % (11.8-14.1); RDW-SD 49.4 fL; WBC 6.53 10^3/uL (4.4-10.8)
[2024-08-22 15:18] LABS: Hemoglobin A1C 5.8 % (<5.7)
[2024-08-22 16:14] LABS: BUN 37 mg/dL (7-18); CREATININE 1.7 mg/dL (0.70-1.30); Calcium 9.5 mg/dL (8.5-10.1); Calculated LDL 73 mg/dL (<100); Chloride 106 mmol/L (98-107); Cholesterol 116 mg/dL (<200); Estimated GFR 44.46 (mL/min/1.73m2); Glucose 127 mg/dL (74-106); HDL Cholesterol 31 mg/dL (40-60); Potassium 4.6 mmol/L (3.5-5.1); Sodium 137 mmol/L (136-145); Triglyceride 64 mg/dL (<150)
[2024-08-25 09:56] LABS: HIV-1/2 Ag & Ab Screen Negative (Negative); PSA, Screening 0.2 ng/mL (<=4.5)
[2024-08-25 14:18] LABS: HBs Antibody, Quant 10.4 mIU/mL (See Note); Hep B Surface Ab Positive (See Note); Hepatitis B Core Antibody Negative (Negative); Hepatitis B Surface Antigen Negative (Negative)
== END 2024-08-22 03:13 | disposition home or self-care (01) ==
LOC: LBO 03:12
PROVIDERS: PCP Nurse Practitioner Family; Visit Provider Nurse Practitioner Family
DX: R73.03 Prediabetes (principal); Z12.5 Encounter for screening for malignant neoplasm of prostate; E78.5 Hyperlipidemia, unspecified; Z11.4 Encounter for screening for human immunodeficiency virus [HIV]; N18.30 Chronic kidney disease, stage 3 unspecified; I10 Essential (primary) hypertension; Z11.59 Encounter for screening for other viral diseases
CPT/HCPCS: 36415; 80048; 80061; 84153; 85027; 86704; 86706; 87340; 87389; 83036

== ENCOUNTER 2024-09-23 16:51 | Emergency (ER) | payer OTHER, SELFPAY ==
[2024-09-23 16:53] VITALS: BP 125/75; PULSE 82; RESP 12; TEMP 36.7; O2SAT 95
--- NOTE | 2024-09-23 17:00 | W.ED.GENAD ---
Discharge Plan Disposition Patient Disposition: Home Condition: Stable Discharge Details Clinical Impression: Laceration of right index finger Primary Care Provider: Mckenzie De Jesus ED Provider: Brenden Landaverde Home Meds and New Rx's Prescriptions: Continued atorvastatin 80 mg tablet 80 mg PO DAILY Qty: 90 3RF buspirone 30 mg tablet 30 mg PO DAILY Qty: 90 4RF Rx Instructions: Take 1 tab a day aspirin [Aspir-81] 81 MG tablet,delayed release (DR/EC) 1 tab PO DAILY lorazepam [Ativan] 1 mg tablet 1 mg PO DAILY PRN (Reason: anxiety) Qty: 28 2RF Rx Instructions: 1 tablet daily as needed for social anxiety lisinopril 40 mg tablet 40 mg PO DAILY Qty: 90 3RF amlodipine 5 mg tablet 5 mg PO DAILY Qty: 90 3RF venlafaxine 75 mg capsule,extended release 24hr 75 mg PO DAILY Qty: 90 3RF Rx Instructions: 1 pill daily in addition to the 150mg pill venlafaxine 150 mg capsule,extended release 24hr 150 mg PO DAILY Qty: 90 3RF Rx Instructions: 1 pill daily in addition to the 75mg pill Discharge Instructions Instructions: Laceration Repair With Stitches ED Additional Instructions: You were seen in the emergency department for the laceration of your right index finger requiring 5 sutures to repair, this was repaired without issue we updated your tetanus, these sutures will need to come out in 7 to 10 days. Please return earlier for any signs of infection including increasing redness, pain, fever, red streaking up the hand, drainage of pus from the area. Referrals: Mckenzie De Jesus NP [Primary Care Provider] - Discharge Data Discharge Date/Time-TO BE ENTERED AT DEPARTURE: 09/23/24 17:42 HPI General Date/Time Provider Initiated Documentation: 09/23/24 16:59. HPI Narrative: 64 year-old male presents to ED today by POV/ambulating with a chief complaint of R index finger laceration from metal banding at work with onset just prior to arrival. Quality described as not painful, bleeding well-controlled with a bandage, no radiation to spurting blood, numbness tingling distal, the laceration is described at his distal right index finger. Severity is described as mild. Palliating factors include simple bandage. Provoking factors include nothing specific. Events leading up to the incident/Associated Symptoms: Patients Tdap is out-of-date. Patient not anticoagulated. Related Data Home Medications ?Medication ?Instructions ?Recorded ?Confirmed aspirin 81 mg tablet,delayed 1 tab PO DAILY 03/09/13 09/23/24 release (Aspir-) amlodipine 5 mg tablet 5 mg PO DAILY #90 tabs 06/11/24 09/23/24 lisinopril 40 mg tablet 40 mg PO DAILY #90 tabs 06/11/24 09/23/24 lorazepam 1 mg tablet (Ativan) 1 mg PO DAILY PRN anxiety #28 tabs 06/11/24 09/23/24 venlafaxine 150 mg 150 mg PO DAILY #90 caps 06/11/24 09/23/24 capsule,extended release 24 hr venlafaxine 75 mg capsule,extended 75 mg PO DAILY #90 caps 06/11/24 09/23/24 release 24 hr atorvastatin 80 mg tablet 80 mg PO DAILY #90 tabs 07/03/24 09/23/24 buspirone 30 mg tablet 30 mg PO DAILY #90 tabs 08/28/24 09/23/24 Previous Rx's ?Medication ?Instructions ?Recorded amlodipine 5 mg tablet 5 mg PO DAILY #90 tabs 06/11/24 lisinopril 40 mg tablet 40 mg PO DAILY #90 tabs 06/11/24 lorazepam 1 mg tablet (Ativan) 1 mg PO DAILY PRN anxiety #28 tabs 06/11/24 venlafaxine 150 mg 150 mg PO DAILY #90 caps 06/11/24 capsule,extended release 24 hr venlafaxine 75 mg capsule,extended 75 mg PO DAILY #90 caps 06/11/24 release 24 hr atorvastatin 80 mg tablet 80 mg PO DAILY #90 tabs 07/03/24 buspirone 30 mg tablet 30 mg PO DAILY #90 tabs 08/28/24 Allergies Allergy/AdvReac Type Severity Reaction Status Date / Time fluoxetine HCl (From Prozac) Allergy Mild Hives Verified 09/23/24 16:55 General Stated Complaint: Laceration DIANNE: 4 Review of Systems All systems reviewed & are unremarkable except as noted in HPI and below Exam Narrative Exam Narrative: GENERAL APPEARANCE: Well-nourished, non-toxic, awake and alert, atraumatic, no acute distress. SKIN: Warm, pink, dry, 1.5 cm curvilinear laceration at the DIP of the right index finger, no active bleeding, sensation and capillary refill intact distal, full range of motion of the finger HEAD: Normocephalic, atraumatic, normal hair distribution for gender/age. EYES: Normal conjunctiva, no exudates on lids/lashes. ENT: Nares patent, no circumoral cyanosis, no facial swelling NECK: Supple, trachea midline, painless cervical ROM. LUNGS/CHEST: Non-labored respirations, normal A/P diameter, symmetrical expansion, no chest wall deformity HEART (CV/PV): Regular rate, R radial pulse 2+, no peripheral edema, no JVD. ABDOMEN: Soft, non-distended, no guarding. MSK: Normal ROM, no swelling/deformity to bilateral UEs or LEs, moving all extremities without weakness, no cyanosis, spine midline without tenderness, normal curvature. NEURO: Mental Status AAOx4 - alert to person, place, time, events No facial droop, no forehead involvement. Motor: No focal weakness - strength 5/5 in bilateral UEs and LEs, proximal and distal, symmetric. Sensory: sensation intact to light touch globally. Gait normal: patient ambulated without ataxia into ED room. PSYCH: euthymic, cooperative, pleasant, appropriate speech Course Vital Signs Vital signs: Vital Signs Temperature 36.7 C 09/23/24 16:53 Pulse 82 09/23/24 16:53 Respiratory Rate 12 09/23/24 16:53 Blood Pressure 125/75 09/23/24 16:53 Pulse Oximetry 95 09/23/24 16:53 Temperature 36.7 C 09/23/24 16:53 Temperature Source Oral 09/23/24 16:53 Pulse 82 09/23/24 16:53 Respiratory Rate 12 09/23/24 16:53 Blood Pressure 125/75 09/23/24 16:53 Blood Pressure Position Sitting 09/23/24 16:53 Pulse Oximetry 95 09/23/24 16:53 Oxygen Delivery Method Room Air 09/23/24 16:53 Oxygen Flow Rate 0 09/23/24 16:53 Pain Level 0 09/23/24 16:53 Procedures Laceration Laceration 1: Site: hand Side (If applicable): right Size (cm): 1.5 Description: linear Depth: simple, single layer Local anesthetic: Lidocaine 1% Amount of anesthesia used (mL): 3 Pre-repair: wound explored, irrigated extensively and deep structures intact Skin layer closed with: nylon Size (cm): 5-0 Number of sutures: 5 Technique: simple, interrupted Medical Decision Making This dictation utilizes [id number] dictation software and may contain unedited grammatical errors. 64 year-old male presents to ED today by POV/ambulating with a chief complaint of R index finger laceration from metal banding at work with onset just prior to arrival. Quality described as not painful, bleeding well-controlled with a bandage, no radiation to spurting blood, numbness tingling distal, the laceration is described at his distal right index finger. Severity is described as mild. Palliating factors include simple bandage. Provoking factors include nothing specific. Events leading up to the incident/Associated Symptoms: Patients Tdap is out-of-date. Patients' medical history: Asplenia, hyperlipidemia, prediabetes. Family and social history: Noncontributory. Pertinent exam findings / vital signs include 1.5 cm curvilinear laceration at the DIP of the right index finger, no active bleeding, sensation and capillary refill intact distal, full range of motion of the finger. Differential / pathologies of concern include laceration, unlikely tendon laceration, not arterial bleeding. Diagnostic studies of: -None. Interventions of: -Suture repair with 5 sutures of 5-0 Ethilon. ED Course/Assessment/Plan: 64-year-old male presents with 1.5 cm right index finger laceration, he is right-hand dominant, I repaired this after perform a ring block with 3 mL of 1% lidocaine with 5 sutures of 5-0 Ethilon, I updated his tetanus, counseled him on return criteria for suture removal in 7 to 10 days and earlier for any signs of infection. Findings not consistent with infection, tendon laceration, arterial bleeding, retained foreign body. Disposition of laceration of right index finger. Patient verbalized understanding of the plan and return to ED criteria and engaged in shared decision making. Medical Records Medical records reviewed: Yes I reviewed the patient's medical records. Quality:SDOH Health Related Social Needs: No Data to Display PFSH All Active Problems (Updated 09/23/24 @ 17:32 by KRISTEL Urias) Laceration of right index finger (Acute) Asplenia (Acute) Thrombocytosis (Acute) CKD (chronic kidney disease) stage 3, GFR 30-59 ml/min (Chronic) Essential hypertension (Chronic) Hyperlipidemia (Chronic) Prediabetes (Chronic) Major depressive disorder (Chronic) Generalized anxiety disorder (Chronic) Social anxiety disorder (Chronic) Globus sensation (Chronic) BPH (benign prostatic hyperplasia) (Chronic) Obesity (Chronic) Medical History History of tobacco use Surgical History (Updated 08/28/24 @ 13:43 by Pascual Foster DO) H/O splenectomy S/P colonoscopy (06/13/21) S/P splenectomy S/P appendectomy Family History Mother , age 80 Essential hypertension Depression Myeloma diagnosed 2011 Father , COVID complications Heart disease Pacemaker Asthma Dementia Chronic kidney disease Hypertension Brother Depression Brother , at 56 from [place] Alcohol abuse Heart disease Myocardial infarction Type 1 diabetes mellitus Stroke Sister No problems noted. Sister No problems noted. Paternal Grandfather No problems noted. Paternal Grandmother Cancer Stroke Maternal Grandfather No problems noted. Maternal Grandmother Ovarian cancer Hyperlipidemia Social History Smoking/Tobacco Use Status: Former Tobacco Use Quit Date: 11/19/03 Tobacco: How many years used: 30 Smokeless tobacco user: chewing tobacco Second Hand Exposure: Yes Smoking risk assessment performed?: Yes Alcohol Intake: former Drug use: Current Sobriety Substance use type: former substance user, marijuana, crack/cocaine, heroin and hallucinogens Counseling given: No Caregiver/Support person: Yes (helps his father) Household members: none Housing: house Communication Needs: None Do you need help understanding health information?: Never current occupation: [employer] Pets and animals: Yes Pets and animals: dog(s) Sexually active: No Do you think of yourself as: straight/heterosexual Current gender identity: male What is your relationship status?: How often do you talk on the phone with friends or family?: three or more times per week How often do you get together with friends or relatives?: three or more times per week How often do you attend evangelical or restorationism services?: 1-3 times per year Do you belong to any clubs or organized social groups?: yes Panel score (0-1 are the most socially isolated patients): 2 What type of physical activity do you participate in: none Frequency: does not exercise Pauline/Jehovah'S Witness: None Special pauline needs: No Seatbelt use: always Helmet use: Yes Helmet use: always Drive 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
== END 2024-09-23 17:42 | disposition home or self-care (01) ==
PROVIDERS: Emergency Provider Physician Assistant; PCP Nurse Practitioner Family
DX: S61.210A Laceration without foreign body of right index finger without damage to nail, initial encounter (principal); I12.9 Hypertensive chronic kidney disease with stage 1 through stage 4 chronic kidney disease, or unspecified chronic kidney disease; N18.30 Chronic kidney disease, stage 3 unspecified; Q89.01 Asplenia (congenital); E78.5 Hyperlipidemia, unspecified; Z23 Encounter for immunization; Z79.82 Long term (current) use of aspirin; Z87.891 Personal history of nicotine dependence
CPT/HCPCS: 12001; 90471; 90715; 99283

== ENCOUNTER 2024-10-03 16:11 | Emergency (ER) | payer BC, SELFPAY ==
[2024-10-03 16:19] VITALS: BP 152/80; PULSE 68; RESP 16; TEMP 36.1; O2SAT 100
--- NOTE | 2024-10-03 16:26 | W.ED.GENAD ---
Discharge Plan Disposition Patient Disposition: Home Condition: Stable Discharge Details Clinical Impression: Visit for suture removal Primary Care Provider: Mckenzie De Jesus ED Provider: Brenden Landaverde Home Meds and New Rx's Prescriptions: Continued atorvastatin 80 mg tablet 80 mg PO DAILY Qty: 90 3RF buspirone 30 mg tablet 30 mg PO DAILY Qty: 90 4RF Rx Instructions: Take 1 tab a day aspirin [Aspir-81] 81 MG tablet,delayed release (DR/EC) 1 tab PO DAILY lisinopril 40 mg tablet 40 mg PO DAILY Qty: 90 3RF amlodipine 5 mg tablet 5 mg PO DAILY Qty: 90 3RF lorazepam [Ativan] 1 mg tablet 1 mg PO DAILY PRN (Reason: anxiety) Qty: 28 2RF Rx Instructions: 1 tablet daily as needed for social anxiety venlafaxine 75 mg capsule,extended release 24hr 75 mg PO DAILY Qty: 90 3RF Rx Instructions: 1 pill daily in addition to the 150mg pill venlafaxine 150 mg capsule,extended release 24hr 150 mg PO DAILY Qty: 90 3RF Rx Instructions: 1 pill daily in addition to the 75mg pill Discharge Instructions Instructions: Stitches Removal Additional Instructions: You were seen in the emergency department for your suture removal, your wound looks great, please return for any signs of infection like spreading redness, increasing pain and swelling, fever, drainage of pus from the area Referrals: Mckenzie De Jesus, JOI [Primary Care Provider] - Discharge Data Discharge Date/Time-TO BE ENTERED AT DEPARTURE: 10/03/24 16:49 HPI General Date/Time Provider Initiated Documentation: 10/03/24 16:26. HPI Narrative: 64 year-old male presents to ED today by POV/ambulating with a chief complaint of request for suture removal with onset of sutures placed by myself in this ED on 09/23. Quality described as no complications with healing, no radiation to fever, redness, increased pain, purulent discharge. Severity is described as 0/10. Palliating factors include nothing needed. Provoking factors include nothing specific. Events leading up to the incident/Associated Symptoms: Patients Tdap UTD. Patient not anticoagulated. Related Data Home Medications ?Medication ?Instructions ?Recorded ?Confirmed aspirin 81 mg tablet,delayed 1 tab PO DAILY 03/09/13 10/03/24 release (Aspir-) amlodipine 5 mg tablet 5 mg PO DAILY #90 tabs 06/11/24 10/03/24 lisinopril 40 mg tablet 40 mg PO DAILY #90 tabs 06/11/24 10/03/24 atorvastatin 80 mg tablet 80 mg PO DAILY #90 tabs 07/03/24 10/03/24 buspirone 30 mg tablet 30 mg PO DAILY #90 tabs 08/28/24 10/03/24 lorazepam 1 mg tablet (Ativan) 1 mg PO DAILY PRN anxiety #28 tabs 09/29/24 10/03/24 venlafaxine 150 mg 150 mg PO DAILY #90 caps 10/02/24 10/03/24 capsule,extended release 24 hr venlafaxine 75 mg capsule,extended 75 mg PO DAILY #90 caps 10/02/24 10/03/24 release 24 hr Previous Rx's ?Medication ?Instructions ?Recorded amlodipine 5 mg tablet 5 mg PO DAILY #90 tabs 06/11/24 lisinopril 40 mg tablet 40 mg PO DAILY #90 tabs 06/11/24 atorvastatin 80 mg tablet 80 mg PO DAILY #90 tabs 07/03/24 buspirone 30 mg tablet 30 mg PO DAILY #90 tabs 08/28/24 lorazepam 1 mg tablet (Ativan) 1 mg PO DAILY PRN anxiety #28 tabs 09/29/24 venlafaxine 150 mg 150 mg PO DAILY #90 caps 10/02/24 capsule,extended release 24 hr venlafaxine 75 mg capsule,extended 75 mg PO DAILY #90 caps 10/02/24 release 24 hr Allergies Allergy/AdvReac Type Severity Reaction Status Date / Time fluoxetine HCl (From [facility]) Allergy Mild Hives Verified 09/23/24 16:55 General Stated Complaint: Recheck DIANNE: 4 Review of Systems All systems reviewed & are unremarkable except as noted in HPI and below Exam Narrative Exam Narrative: GENERAL APPEARANCE: Well-nourished, non-toxic, awake and alert, atraumatic, no acute distress. SKIN: Warm, pink, dry, [address], wound well healed without redness, purulence, lymphadenitis HEAD: Normocephalic, atraumatic, normal hair distribution for gender/age. EYES: Normal conjunctiva, no exudates on lids/lashes. ENT: Nares patent, no circumoral cyanosis, no facial swelling NECK: Supple, trachea midline, painless cervical ROM. LUNGS/CHEST: Non-labored respirations, normal A/P diameter, symmetrical expansion, no chest wall deformity HEART (CV/PV): No peripheral edema, no JVD. ABDOMEN: Soft, non-distended, no guarding. MSK: Normal ROM, no swelling/deformity to bilateral UEs or LEs, moving all extremities without weakness, no cyanosis, spine midline without tenderness, normal curvature. NEURO: Mental Status AAOx4 - alert to person, place, time, events No facial droop, no forehead involvement. Motor: No focal weakness - strength 5/5 in bilateral UEs and LEs, proximal and distal, symmetric. Sensory: sensation intact to light touch globally. Gait normal: patient ambulated without ataxia into ED room. PSYCH: euthymic, cooperative, pleasant, appropriate speech Course Vital Signs Vital signs: Vital Signs Temperature 36.1 C L 10/03/24 16:19 Pulse 68 10/03/24 16:19 Respiratory Rate 16 10/03/24 16:19 Blood Pressure 152/80 H 10/03/24 16:19 Pulse Oximetry 100 10/03/24 16:19 Temperature 36.1 C L 10/03/24 16:19 Pulse 68 10/03/24 16:19 Respiratory Rate 16 10/03/24 16:19 Respiratory Effort Normal 10/03/24 16:22 Blood Pressure 152/80 H 10/03/24 16:19 Pulse Oximetry 100 10/03/24 16:19 Pain Level 0 10/03/24 16:19 Medical Decision Making This dictation utilizes [id number] dictation software and may contain unedited grammatical errors. 64 year-old male presents to ED today by POV/ambulating with a chief complaint of request for suture removal with onset of sutures placed by myself in this ED on 09/23. Quality described as no complications with healing, no radiation to fever, redness, increased pain, purulent discharge. Severity is described as 0/10. Palliating factors include nothing needed. Provoking factors include nothing specific. Events leading up to the incident/Associated Symptoms: Patients Tdap UTD. Patients' medical history: Noncontributory. Family and social history: Noncontributory. Pertinent exam findings / vital signs include well-healed right index finger laceration with [address]. Differential / pathologies of concern include suture removal. Diagnostic studies of: -None. Interventions of: -None. ED Course/Assessment/Plan: Patient's sutures were removed by RN in triage after I reviewed the wound, there is no sign of infection, counseled the patient to continue activities of daily living. Findings not consistent with wound infection. Disposition of visit for suture removal. Patient verbalized understanding of the plan and return to ED criteria and engaged in shared decision making. Medical Records Medical records reviewed: Yes I reviewed the patient's medical records. Quality:SDOH Health Related Social Needs: No Data to Display PFSH All Active Problems (Updated 10/03/24 @ 16:44 by KRISTEL Urias) Visit for suture removal (Acute) Laceration of right index finger (Acute) Asplenia (Acute) Thrombocytosis (Acute) CKD (chronic kidney disease) stage 3, GFR 30-59 ml/min (Chronic) Essential hypertension (Chronic) Hyperlipidemia (Chronic) Prediabetes (Chronic) Major depressive disorder (Chronic) Generalized anxiety disorder (Chronic) Social anxiety disorder (Chronic) Globus sensation (Chronic) BPH (benign prostatic hyperplasia) (Chronic) Obesity (Chronic) Medical History History of tobacco use Surgical History (Updated 08/28/24 @ 13:43 by Pascual Foster DO) H/O splenectomy S/P colonoscopy (06/13/21) S/P splenectomy S/P appendectomy Family History Mother , age 80 Essential hypertension Depression Myeloma diagnosed 2011 Father , COVID complications Heart disease Pacemaker Asthma Dementia Chronic kidney disease Hypertension Brother Depression Brother , at 56 from [place] Alcohol abuse Heart disease Myocardial infarction Type 1 diabetes mellitus Stroke Sister No problems noted. Sister No problems noted. Paternal Grandfather No problems noted. Paternal Grandmother Cancer Stroke Maternal Grandfather No problems noted. Maternal Grandmother Ovarian cancer Hyperlipidemia Social History Smoking/Tobacco Use Status: Former Tobacco Use Quit Date: 11/19/03 Tobacco: How many years used: 30 Smokeless tobacco user: chewing tobacco Second Hand Exposure: Yes Smoking risk assessment performed?: Yes Alcohol Intake: former Drug use: Current Sobriety Substance use type: former substance user, marijuana, crack/cocaine, heroin and hallucinogens Counseling given: No Caregiver/Support person: Yes (helps his father) Household members: none Housing: house Communication Needs: None Do you need help understanding health information?: Never current occupation: [employer] Pets and animals: Yes Pets and animals: dog(s) Sexually active: No Do you think of yourself as: straight/heterosexual Current gender identity: male What is your relationship status?: How often do you talk on the phone with friends or family?: three or more times per week How often do you get together with friends or relatives?: three or more times per week How often do you attend anabaptist or taoism services?: 1-3 times per year Do you belong to any clubs or organized social groups?: yes Panel score (0-1 are the most socially isolated patients): 2 What type of physical activity do you participate in: none Frequency: does not exercise Pauline/Confucianist: None Special pauline needs: No Seatbelt use: always Helmet use: Yes Helmet use: always Drive intox or ride 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
== END 2024-10-03 16:49 | disposition home or self-care (01) ==
PROVIDERS: Emergency Provider Physician Assistant; PCP Nurse Practitioner Family
DX: Z48.02 Encounter for removal of sutures (principal)

== ENCOUNTER 2024-10-24 10:10 | Outpatient (CLI) | payer BC, SELFPAY ==
[2024-10-24 13:01] LABS: Iron 49 ug/dL (65-175); Total Iron Binding Capacity 303 ug/dL (250-450)
[2024-10-24 13:33] LABS: ALT 31 U/L (16-63); AST 15 U/L (15-37); Albumin 3.5 g/dL (3.4-5.0); Alkaline Phosphatase 54 U/L (46-116); Anion Gap 9.8 mmol/L (3-11); BUN 20 mg/dL (7-18); Bilirubin, Total 0.24 mg/dL (0.2-1.0); CO2 24.2 mmol/L (21.0-32.0); CREATININE 1.5 mg/dL (0.70-1.30); Calcium 9.8 mg/dL (8.5-10.1); Chloride 109 mmol/L (98-107); Estimated GFR 51.67 (mL/min/1.73m2); Ferritin 75 ng/mL (26-388); Glucose 108 mg/dL (74-106); PHOSPHORUS 3.6 mg/dL (2.6-4.7); Potassium 4.3 mmol/L (3.5-5.1); Sodium 143 mmol/L (136-145); Total Protein 7.6 g/dL (6.4-8.2); Vitamin B12 699 pg/mL (193-986); Vitamin D 25 Total 9.3 ng/mL (30-100)
[2024-10-24 13:45] LABS: Magnesium 1.8 mg/dL (1.8-2.4); Uric Acid 6.6 mg/dL (3.5-7.2)
[2024-10-24 18:41] LABS: Parathyroid Hormone,Intact 41.9 pg/mL (19.0-88.0)
[2024-10-26 10:05] LABS: Cystatin C, S 1.33 mg/L; eGFR by Cystatin C 52 mL/min/BSA (>60)
[2024-10-29 12:34] LABS: Albumin 53.5 % (55.8-66.1); Albumin g/dL 3.7 g/dL (3.6-5.2); Monoclonal Spike 3.3 % (None Seen); Monoclonal Spike g/dL 0.2 g/dL (None Seen)
[2024-10-29 13:39] LABS: Immunotyping, Serum (See Note)
== END 2024-10-24 10:11 | disposition home or self-care (01) ==
LOC: LOS 10:11
PROVIDERS: PCP Nurse Practitioner Family; Referring Provider Nurse Practitioner Family; Visit Provider Nurse Practitioner Family
DX: Z00.00 Encounter for general adult medical examination without abnormal findings (principal); N18.30 Chronic kidney disease, stage 3 unspecified
CPT/HCPCS: 36415; 80053; 82306; 82610; 82607; 82728; 82746; 83540; 83550; 83735; 83970; 84100; 84165; 84550; 86320

== ENCOUNTER 2024-11-28 22:13 | Outpatient (REF) | payer BC, SELFPAY ==
[2024-11-28 23:04] LABS: COMMENT (LAB VIEW ONLY) 66.44 mg/dL
[2024-11-28 23:15] LABS: Microalb ug/mg Crea 587.9 ug/mg Cr
[2024-12-01 09:45] LABS: COMMENT (LAB VIEW ONLY) 66.49 mg/dL; PROTEIN 61.8 mg/dL; Prot/Crea Ur Ratio 0.92
== END 2024-11-28 22:14 | disposition home or self-care (01) ==
LOC: LBN 22:13
PROVIDERS: PCP Nurse Practitioner Family; Visit Provider Nurse Practitioner Family
DX: N18.30 Chronic kidney disease, stage 3 unspecified (principal)
CPT/HCPCS: 81003; 82043; 82565; 82570; 84156

== ENCOUNTER 2024-12-09 21:19 | Outpatient (REF) | payer BC, SELFPAY ==
[2024-12-09 22:05] LABS: Bilirubin Negative (Negative); Blood Negative (Negative); Clarity Clear (Clear); Glucose Negative (Negative); Ketones Negative (Negative); Leukocyte Esterase Negative (Negative); Nitrite Negative (Negative); Urobilinogen 0.2 mg/dL (Up to 0.2)
[2024-12-09 22:17] LABS: Bacteria Negative HPF (Negative); C & S Indicated? No; Crystals Negative HPF (Negative); Epithelial Cells Moderate HPF (Negative); Mucus Negative (Negative)
== END 2024-12-09 21:20 | disposition home or self-care (01) ==
LOC: LBN 21:19
PROVIDERS: PCP Nurse Practitioner Family; Visit Provider Nurse Practitioner Family
DX: N18.30 Chronic kidney disease, stage 3 unspecified (principal)
CPT/HCPCS: 81003; 81015

== ENCOUNTER 2025-05-15 00:44 | Outpatient (CLI) | payer MEDICARE, SELFPAY ==
[2025-05-15 17:11] LABS: Abs Immature Grans 0.02 10^3/uL (0.0-0.06); HCT 43.7 % (40.0-50.0); HGB 14.4 g/dL (13.5-17.5); MCH 32.9 pg (27.0-33.0); MCV 100 fL (80-95); MPV 10.2 fL (8.0-11.0); RBC 4.38 10^6/uL (4.36-5.78); RDW 14.2 % (11.8-14.1); RDW-SD 52.3 fL
[2025-05-15 17:34] LABS: Absolute Basophil Count 0.09 10^3/uL (0.0-0.2); Absolute Lymphocyte Count 6.05 10^3/uL (1.2-3.4); Absolute Monocyte Count 0.62 10^3/uL (0.1-0.8); Absolute Neutrophil Count 2.14 10^3/uL (1.2-6.7); Diff Comment Manual Differential; RBC Morphology Normal
[2025-05-15 17:35] LABS: Platelet Count 451 10^3/uL (130-400)
[2025-05-15 17:45] LABS: ALT 31 U/L (16-63); AST 10 U/L (15-37); Albumin 3.7 g/dL (3.4-5.0); Alkaline Phosphatase 55 U/L (46-116); Anion Gap 14.9 mmol/L (3-11); BUN 50 mg/dL (7-18); Bilirubin, Total 0.3 mg/dL (0.2-1.0); CO2 21.1 mmol/L (21.0-32.0); Chloride 105 mmol/L (98-107); Estimated GFR 36.36 (mL/min/1.73m2); Glucose 150 mg/dL (74-106); PHOSPHORUS 3.7 mg/dL (2.6-4.7); Potassium 4.5 mmol/L (3.5-5.1); Sodium 141 mmol/L (136-145); Uric Acid 8.4 mg/dL (3.5-7.2)
[2025-05-15 17:47] LABS: COMMENT (LAB VIEW ONLY) 116.74 mg/dL
[2025-05-15 17:50] LABS: Microalb ug/mg Crea 567.1 ug/mg Cr
[2025-05-15 18:28] LABS: COMMENT (LAB VIEW ONLY) 115.45 mg/dL; PROTEIN 111.7 mg/dL; Prot/Crea Ur Ratio 0.96
[2025-05-15 19:22] LABS: Vitamin D 25 Total 29 ng/mL (30-100)
[2025-05-15 19:24] LABS: Folate > 20.0 ng/mL (8.6-20.0)
[2025-05-18 10:15] LABS: Parathyroid Hormone,Intact 86 pg/mL (19-88)
[2025-05-19 15:56] LABS: Cystatin C, S 1.81 mg/L; eGFR by Cystatin C 35 mL/min/BSA (>60)
== END 2025-05-15 00:45 | disposition home or self-care (01) ==
LOC: LBO 00:44
PROVIDERS: PCP Nurse Practitioner Family; Visit Provider Nurse Practitioner Family
DX: N18.30 Chronic kidney disease, stage 3 unspecified (principal); E53.8 Deficiency of other specified B group vitamins
CPT/HCPCS: 36415; 80053; 82306; 82610; 82043; 82565; 82570; 82746; 83970; 84100; 84156; 84550; 85025